=== PATIENT | female | born 1945 | race Asian ===

== ENCOUNTER 2020-07-23 19:01 | Emergency (ER) | payer MEDICARE, MEDICAID ==
[~2020-07-23] VITALS: Ht 165.1 cm; Wt 50.0 kg
[2020-07-23 20:17] LABS: HEMATOCRIT. 41.3 % (36.0-48.0); MEAN CORPUSCULAR HEMOGLOBIN 29.6 pg (28.0-32.0); MEAN CORPUSCULAR VOLUME 87.2 fL (81.0-99.0); MEAN PLATELET VOLUME 7.7 fl (7.4-10.4); PLATELET 281 x1000/uL (130-400); RED BLOOD CELL COUNT 4.74 mill/uL (4.2-5.4); RED CELL DISTRIBUTION WIDTH 12.8 % (11.6-14.6)
[2020-07-23 20:39] LABS: CHLORIDE 99 mEq/L (98-107)
[2020-07-23 20:43] LABS: PLATELET ESTIMATE NORMAL
[2020-07-23] MEDS ORDERED: SODIUM CHLORIDE 0.9% 1,000 ML IV ONE ×3 (21:00→23:45)
[2020-07-23] MEDS ORDERED: IOHEXOL-350 100 ML BOTTLE ONE (23:19)
[2020-07-24 01:36] VITALS: BP 123/63
== END 2020-07-24 02:12 | disposition home or self-care (01) ==
LOC: ER 19:01
DX: U07.1 COVID-19 (principal); I10 Essential (primary) hypertension; E11.9 Type 2 diabetes mellitus without complications; I45.10 Unspecified right bundle-branch block; Z79.899 Other long term (current) drug therapy
CPT/HCPCS: 36415; 71045; 71275; 80053; 84484; 85025; 85379; 93005; 96360; 96361; 99285; C9803; J7030; Q9967; U0003